=== PATIENT | female | born 1950 | race Caucasian/White ===

== ENCOUNTER 2022-09-12 08:00 | Outpatient (CLI) | payer MEDICARE ==
[2022-09-12 14:55] LABS: BASOPHILS # (AUTO) 0.1 10^3/uL (0.0-0.1); BASOPHILS % (AUTO) 0.9 %; EOSINOPHILS # (AUTO) 0.1 10^3/uL (0.0-0.7); EOSINOPHILS % (AUTO) 2.2 %; HCT - HEMATOCRIT 35.5 % (37.0-47.0); LYMPHOCYTES # (AUTO) 2.9 10^3/uL (1.5-3.5); LYMPHOCYTES % (AUTO) 45.4 %; MEAN CORPUSCULAR HEMOGLOBIN 27.6 pg (27.0-31.0); MEAN CORPUSCULAR VOLUME 89.2 fL (81.0-99.0); MEAN PLATELET VOLUME 11.7 fL (7.9-10.8); MONOCYTES # (AUTO) 0.3 10^3/uL (0.0-1.0); MONOCYTES % (AUTO) 5.1 %; NEUTROPHILS % (AUTO) 46.1 %; PLT - PLATELET COUNT 238 10^3/uL (130-450); RED BLOOD COUNT 3.98 10^6/uL (4.20-5.40); RED CELL DISTRIBUTION WIDTH 15.3 % (12.0-15.0); WHITE BLOOD COUNT 6.5 x10^3/uL (4.8-10.8)
[2022-09-12 15:41] LABS: ALBUMIN 3.6 g/dL (3.2-5.5); ALBUMIN/GLOBULIN RATIO 1.1 (1.0-2.2); BILIRUBIN,TOTAL 0.5 mg/dL (0.2-1.0); CALCIUM 9.5 mg/dL (8.5-10.3); CREATININE 0.7 mg/dL (0.4-1.0); POTASSIUM 4.6 mmol/L (3.5-5.0)
[2022-09-13 04:09] LABS: HBsAG SCREEN Negative (Negative); HCV AB <0.1 s/co ratio (0.0-0.9)
[2022-09-13 22:06] LABS: HIV SCREEN 4TH GENERATION Non Reactive (Non Reactive)
== END 2022-09-12 23:59 | disposition home or self-care (01) ==
LOC: LAB.S 08:00
PROVIDERS: ATTEND Registered Nurse
DX: Z77.21 Contact with and (suspected) exposure to potentially hazardous body fluids (principal)
CPT/HCPCS: 36415; 80053; 85025; 86803; 87340; G0475; 87389

== ENCOUNTER 2022-11-08 03:00 | Emergency (ER) | payer MEDICARE ==
--- OUTSIDE RECORDS SUMMARY | 2022-11-08 03:15 | EXTERNAL MEDICAL SUMMARY RPT | Continuity of Care Document ---
:1950 Author Organization [facility] Address [address] [place] [address] Phone Care Team Providers Name Role Phone Unavailable Unavailable Unavailable Monico Cota, Rodrigo Unavailable Unavailable Bayron Espino, Sloane Unavailable Unavailable Allison, Provider Unavailable Unavailable Nurse, [facility] Unavailable Unavailable Allergies No information. Encounters No information. Functional Status No information. Immunizations No information. Medications date description facility 2022-09-12 00:00 [email or web address] 2022-09-12 00:00 [email or web address] 2022-09-13 00:00 [email or web address] 2022-09-13 00:00 [email or web address] 2022-09-13 00:00 [email or web address] 2022-09-14 00:00 [email or web address] 2022-09-15 00:00 [email or web address] 2022-09-12 00:00 [email or web address] 2022-09-12 00:00 [email or web address] 2022-09-13 00:00 [email or web address] 2022-09-13 00:00 [email or web address] 2022-09-13 00:00 [email or web address] 2022-09-14 00:00 [email or web address] 2022-09-15 00:00 [email or web address] 2022-09-12 00:00 [email or web address] 2022-09-12 00:00 [email or web address] 2022-09-13 00:00 [email or web address] 2022-09-13 00:00 [email or web address] 2022-09-13 00:00 [email or web address] 2022-09-14 00:00 [email or web address] 2022-09-15 00:00 [email or web address] 2022-09-12 00:00 [email or web address] 2022-09-12 00:00 [email or web address] 2022-09-13 00:00 [email or web address] 2022-09-13 00:00 [email or web address] 2022-09-13 00:00 [email or web address] 2022-09-14 00:00 [email or web address] 2022-09-15 00:00 [email or web address] Problems date description facility 2022-09-12 00:00 H/O: risk factor [facility] 2022-09-12 00:00 H/O: risk factor [facility] 2022-09-12 00:00 H/O: risk factor [facility] 2022-09-12 00:00 H/O: risk factor [facility] 2022-09-12 00:00 Personal history of contact with [facility] (suspected) exposure to [facility] potentially hazardous body fluids 2022-09-12 00:00 Personal history of contact with [facility] and (suspected) exposure to [facility] potentially hazardous body fluids 2022-09-12 00:00 Personal history of contact with [facility] and (suspected) exposure to [facility] potentially hazardous body fluids 2022-09-12 00:00 Personal history of contact with [facility] & and (suspected) exposure to [facility] potentially hazardous body fluids 2022-09-12 00:00 Other specified personal risk [facility] factors, not elsewhere classified [facility] 2022-09-12 00:00 Other specified personal risk [facility] factors, not elsewhere classified [facility] 2022-09-12 00:00 Other specified personal risk [facility] factors, not elsewhere classified [facility] 2022-09-12 00:00 Other specified personal risk [facility] factors, not elsewhere classified [facility] Procedures date description facility 2022-09-12 00:00 Visit Code Hold [facility] 2022-09-12 00:00 Visit Code Hold [facility] 2022-09-12 00:00 Visit Code Hold [facility] 2022-09-12 00:00 Visit Code Hold [facility] Results/Labs test date author facility value unit interpret ation Result panel 1 (unknown) (no date) (unknown) [facility] (no value) (units [facility] Result panel 2 (unknown) (no date) (unknown) [facility] (no value) ([facility] Result panel 3 (unknown) (no date) (unknown) [facility] (no value) ([facility] Result panel 4 (unknown) (no date) (unknown) [facility] (no value) ([facility] Result panel 5 (unknown) (no date) (unknown) [facility] (no value) ([facility] Result panel 6 (unknown) (no date) (unknown) [facility] (no value) ([facility] Result panel 7 (unknown) (no date) (unknown) [facility] (no value) ([facility] Result panel 8 (unknown) (no date) (unknown) [facility] (no value) ([facility] Result panel 9 (unknown) (no date) (unknown) [facility] (no value) ([facility] Result panel 10 (unknown) (no date) (unknown) [facility] (no value) ([facility] Result panel 11 (unknown) (no date) (unknown) [facility] (no value) ([facility] Result panel 12 (unknown) (no date) (unknown) [facility] (no value) ([facility] Result panel 13 (unknown) (no date) (unknown) [facility] (no value) ([facility] Result panel 14 (unknown) (no date) (unknown) [facility] (no value) ([facility] Result panel 15 (unknown) (no date) (unknown) [facility] (no value) ([facility] Result panel 16 (unknown) (no date) (unknown) [facility] (no value) ([facility] Result panel 17 (unknown) (no date) (unknown) [facility] (no value) ([facility] Result panel 18 (unknown) (no date) (unknown) [facility] (no value) ([facility] Result panel 19 (unknown) (no date) (unknown) [facility] (no value) ([facility] Result panel 20 (unknown) (no date) (unknown) [facility] (no value) ([facility] Result panel 21 (unknown) (no date) (unknown) [facility] (no value) ([facility] Result panel 22 (unknown) (no date) (unknown) [facility] (no value) ([facility] Result panel 23 (unknown) (no date) (unknown) [facility] (no value) ([facility] Result panel 24 (unknown) (no date) (unknown) [facility] (no value) ([facility] Result panel 25 (unknown) (no date) (unknown) [facility] (no value) ([facility] Result panel 26 (unknown) (no date) (unknown) [facility] (no value) ([facility] Result panel 27 (unknown) (no date) (unknown) [facility] (no value) [facility] Result panel 28 (unknown) (no date) (unknown) [facility] (no value) ([facility] Result panel 29 (unknown) (no date) (unknown) [facility] (no value) [facility] Result panel 30 (unknown) (no date) (unknown) [facility] (no value) [facility] Result panel 31 (unknown) (no date) (unknown) [facility] (no value) ([facility] Result panel 32 (unknown) (no date) (unknown) [facility] (no value) ([facility] Result panel 33 (unknown) (no date) (unknown) [facility] (no value) ([facility] Result panel 34 (unknown) (no date) (unknown) [facility] (no value) ([facility] Result panel 35 (unknown) (no date) (unknown) [facility] (no value) ([facility] Result panel 36 (unknown) (no date) (unknown) [facility] (no value) ([facility] Result panel 37 (unknown) (no date) (unknown) [facility] (no value) ([facility] Result panel 38 (unknown) (no date) (unknown) [facility] (no value) [facility] Result panel 39 (unknown) (no date) (unknown) [facility] (no value) ([facility] Result panel 40 (unknown) (no date) (unknown) [facility] (no value) [facility] Result panel 41 (unknown) (no date) (unknown) [facility] (no value) ([facility] Result panel 42 (unknown) (no date) (unknown) [facility] (no value) ([facility] Result panel 43 (unknown) (no date) (unknown) [facility] (no value) ([facility] Result panel 44 (unknown) (no date) (unknown) [facility] (no value) ([facility] Result panel 45 (unknown) (no date) (unknown) [facility] (no value) ([facility] Result panel 46 (unknown) (no date) (unknown) [facility] (no value) ([facility] Result panel 47 (unknown) (no date) (unknown) [facility] (no value) ([facility] Result panel 48 (unknown) (no date) (unknown) [facility] (no value) ([facility] Result panel 49 (unknown) (no date) (unknown) [facility] (no value) [facility] Result panel 50 (unknown) (no date) (unknown) [facility] (no value) [facility] Result panel 51 (unknown) (no date) (unknown) [facility] (no value) ([facility] Result panel 52 (unknown) (no date) (unknown) [facility] (no value) [facility] Result panel 53 (unknown) (no date) (unknown) [facility] (no value) ([facility] Result panel 54 (unknown) (no date) (unknown) [facility] (no value) ([facility] Result panel 55 (unknown) (no date) (unknown) [facility] (no value) ([facility] Result panel 56 (unknown) (no date) (unknown) [facility] (no value) [facility] Result panel 57 (unknown) (no date) (unknown) [facility] (no value) [facility] Result panel 58 (unknown) (no date) (unknown) [facility] (no value) [facility] Result panel 59 (unknown) (no date) (unknown) [facility] (no value) [facility] Result panel 60 (unknown) (no date) (unknown) [facility] (no value) [facility] Result panel 61 (unknown) (no date) (unknown) [facility] (no value) [facility] Result panel 62 (unknown) (no date) (unknown) [facility] (no value) ([facility] Result panel 63 (unknown) (no date) (unknown) [facility] (no value) ([facility] Result panel 64 (unknown) (no date) (unknown) [facility] (no value) ([facility] Result panel 65 (unknown) (no date) (unknown) [facility] (no value) ([facility] Result panel 66 (unknown) (no date) (unknown) [facility] (no value) [facility] Result panel 67 (unknown) (no date) (unknown) [facility] (no value) ([facility] Result panel 68 (unknown) (no date) (unknown) [facility] (no value) ([facility] Result panel 69 (unknown) (no date) (unknown) [facility] (no value) [facility] Result panel 70 (unknown) (no date) (unknown) [facility] (no value) ([facility] Result panel 71 (unknown) (no date) (unknown) [facility] (no value) (units (unknown) [facility] Result panel 72 (unknown) (no date) (unknown) [facility] (no value) [facility] Result panel 73 (unknown) (no date) (unknown) [facility] (no value) ([facility] Result panel 74 (unknown) (no date) (unknown) [facility] (no value) ([facility] Result panel 75 (unknown) (no date) (unknown) [facility] (no value) ([facility] Result panel 76 (unknown) (no date) (unknown) [facility] (no value) ([facility] Result panel 77 (unknown) (no date) (unknown) [facility] (no value) ([facility] Result panel 78 (unknown) (no date) (unknown) [facility] (no value) ([facility] Result panel 79 (unknown) (no date) (unknown) [facility] (no value) ([facility] Result panel 80 (unknown) (no date) (unknown) [facility] (no value) ([facility] Result panel 81 (unknown) (no date) (unknown) [facility] (no value) ([facility] Result panel 82 (unknown) (no date) (unknown) [facility] (no value) ([facility] Result panel 83 (unknown) (no date) (unknown) [facility] (no value) ([facility] Result panel 84 (unknown) (no date) (unknown) [facility] (no value) ([facility] Result panel 85 (unknown) (no date) (unknown) [facility] (no value) ([facility] Result panel 86 (unknown) (no date) (unknown) [facility] (no value) ([facility] Result panel 87 (unknown) (no date) (unknown) [facility] (no value) ([facility] Result panel 88 (unknown) (no date) (unknown) [facility] (no value) ([facility] Result panel 89 (unknown) (no date) (unknown) [facility] (no value) ([facility] ([facility] Result panel 90 (unknown) (no date) (unknown) [facility] (no value) ([facility] ([facility] Result panel 91 (unknown) (no date) (unknown) [facility] (no value) (units ([facility] Result panel 92 (unknown) (no date) (unknown) [facility] (no value) (units ([facility] Result panel 93 (unknown) (no date) (unknown) [facility] (no value) (units ([facility] Result panel 94 (unknown) (no date) (unknown) [facility] (no value) (units ([facility] Result panel 95 (unknown) (no date) (unknown) [facility] (no value) (units ([facility] Result panel 96 (unknown) (no date) (unknown) [facility] (no value) (units ([facility] Result panel 97 (unknown) (no date) (unknown) [facility] (no value) (units ([facility] Result panel 98 (unknown) (no date) (unknown) [facility] (no value) (units ([facility] Result panel 99 (unknown) (no date) (unknown) [facility] (no value) (units [facility] Result panel 100 (unknown) (no date) (unknown) [facility] (no value) ([facility] Result panel 101 (unknown) (no date) (unknown) [facility] (no value) (units [facility] Result panel 102 (unknown) (no date) (unknown) [facility] (no value) ([facility] Result panel 103 (unknown) (no date) (unknown) [facility] (no value) (units [facility] Result panel 104 (unknown) (no date) (unknown) [facility] (no value) (units [facility] Result panel 105 (unknown) (no date) (unknown) [facility] (no value) (units [facility] Result panel 106 (unknown) (no date) (unknown) [facility] (no value) (units [facility] Result panel 107 (unknown) (no date) (unknown) [facility] (no value) (units ([facility] Result panel 108 (unknown) (no date) (unknown) [facility] (no value) (units [facility] Result panel 109 (unknown) (no date) (unknown) [facility] (no value) ([facility] Result panel 110 (unknown) (no date) (unknown) [facility] (no value) (units [facility] Result panel 111 (unknown) (no date) (unknown) [facility] (no value) (units [facility] Result panel 112 (unknown) (no date) (unknown) [facility] (no value) (units ([facility] Result panel 113 (unknown) (no date) (unknown) [facility] (no value) (units ([facility] Result panel 114 (unknown) (no date) (unknown) [facility] (no value) (units ([facility] Result panel 115 (unknown) (no date) (unknown) [facility] (no value) ([facility] Result panel 116 (unknown) (no date) (unknown) [facility] (no value) ([facility] Result panel 117 (unknown) (no date) (unknown) [facility] (no value) (units [facility] Result panel 118 (unknown) (no date) (unknown) [facility] (no value) ([facility] Result panel 119 (unknown) (no date) (unknown) [facility] (no value) (units [facility] Result panel 120 (unknown) (no date) (unknown) [facility] (no value) (units [facility] Result panel 121 (unknown) (no date) (unknown) [facility] (no value) (units ([facility] Result panel 122 (unknown) (no date) (unknown) [facility] (no value) ([facility] Result panel 123 (unknown) (no date) (unknown) [facility] (no value) (units [facility] Result panel 124 (unknown) (no date) (unknown) [facility] (no value) ([facility] Result panel 125 (unknown) (no date) (unknown) [facility] (no value) ([facility] Result panel 126 (unknown) (no date) (unknown) [facility] (no value) (units ([facility] Result panel 127 (unknown) (no date) (unknown) [facility] (no value) ([facility] ([facility] Result panel 128 (unknown) (no date) (unknown) [facility] (no value) (units ([facility] Result panel 129 (unknown) (no date) (unknown) [facility] (no value) ([facility] Result panel 130 (unknown) (no date) (unknown) [facility] (no value) ([facility] Result panel 131 (unknown) (no date) (unknown) [facility] (no value) ([facility] Result panel 132 (unknown) (no date) (unknown) [facility] (no value) ([facility] Result panel 133 (unknown) (no date) (unknown) [facility] (no value) ([facility] Result panel 134 (unknown) (no date) (unknown) [facility] (no value[facility] Result panel 135 (unknown) (no date) (unknown) [facility] (no value) [facility] Result panel 136 (unknown) (no date) (unknown) [facility] (no value) [facility] Result panel 137 (unknown) (no date) (unknown) [facility] (no value) [facility] Result panel 138 (unknown) (no date) (unknown) [facility] (no value) [facility] Result panel 139 (unknown) (no date) (unknown) [facility] (no value) [facility]units [facility] Result panel 140 (unknown) (no date) (unknown) [facility] (no value) [facility] Result panel 141 (unknown) (no date) (unknown) [facility] (no value) [facility] Result panel 142 (unknown) (no date) (unknown) [facility] (no value) [facility] Result panel 143 (unknown) (no date) (unknown) [facility] (no value) [facility] Result panel 144 (unknown) (no date) (unknown) [facility] (no value) [facility] Result panel 145 (unknown) (no date) (unknown) [facility] (no value) [facility] Result panel 146 (unknown) (no date) (unknown) [facility] (no value) [facility]units [facility] Result panel 147 (unknown) (no date) (unknown) [facility] (no value) [facility]units [facility] Result panel 148 (unknown) (no date) (unknown) [facility] (no value) [facility] Result panel 149 (unknown) (no date) (unknown) [facility] (no value) [facility]units [facility] Result panel 150 (unknown) (no date) (unknown) [facility] (no value) [facility] Result panel 151 (unknown) (no date) (unknown) [facility] (no value) [facility] Result panel 152 (unknown) (no date) (unknown) [facility] (no value) [facility] Result panel 153 (unknown) (no date) (unknown) [facility] (no value) [facility] Result panel 154 (unknown) (no date) (unknown) [facility] (no value) [facility] Result panel 155 (unknown) (no date) (unknown) [facility] (no value) [facility] Result panel 156 (unknown) (no date) (unknown) [facility] (no value) [facility] Result panel 157 (unknown) (no date) (unknown) [facility] (no value) [facility] Result panel 158 (unknown) (no date) (unknown) [facility] (no value) [facility] Result panel 159 (unknown) (no date) (unknown) [facility] (no value) [facility] Result panel 160 (unknown) (no date) (unknown) [facility] (no value) [facility] Result panel 161 (unknown) (no date) (unknown) [facility] (no value) [facility] Result panel 162 (unknown) (no date) (unknown) [facility] (no value) [facility] Result panel 163 (unknown) (no date) (unknown) [facility] (no value) [facility] Result panel 164 (unknown) (no date) (unknown) [facility] (no value) [facility] Result panel 165 (unknown) (no date) (unknown) [facility] (no value) [facility] Result panel 166 (unknown) (no date) (unknown) [facility] (no value) [facility] Result panel 167 (unknown) (no date) (unknown) Walk-[facility] (no value) [facility] Result panel 168 (unknown) (no date) (unknown) [facility] (no value) [facility]units [facility] Result panel 169 (unknown) (no date) (unknown) [facility] (no value) [facility] Result panel 170 (unknown) (no date) (unknown) Walk-[facility] (no value) [facility] Result panel 171 (unknown) (no date) (unknown) [facility] (no value) [facility] Result panel 172 (unknown) (no date) (unknown) [facility] (no value) [facility] Result panel 173 (unknown) (no date) (unknown) [facility] (no value) [facility] Result panel 174 (unknown) (no date) (unknown) [facility] (no value) [facility] Result panel 175 (unknown) (no date) (unknown) [facility] (no value) [facility] Result panel 176 (unknown) (no date) (unknown) [facility] (no value) [facility] Result panel 177 (unknown) (no date) (unknown) [facility] (no value) [facility] Result panel 178 (unknown) (no date) (unknown) [facility] (no value) [facility] Result panel 179 (unknown) (no date) (unknown) [facility] (no value) [facility] Result panel 180 (unknown) (no date) (unknown) [facility] (no value) [facility] Result panel 181 (unknown) (no date) (unknown) [facility] (no value) [facility] Result panel 182 (unknown) (no date) (unknown) [facility] (no value) [facility]units [facility] Result panel 183 (unknown) (no date) (unknown) [facility] (no value) [facility] Result panel 184 (unknown) (no date) (unknown) [facility] (no value) [facility] Result panel 185 (unknown) (no date) (unknown) [facility] (no value) [facility] Result panel 186 (unknown) (no date) (unknown) [facility] (no value) [facility] Result panel 187 (unknown) (no date) (unknown) [facility] (no value) [facility] Result panel 188 (unknown) (no date) (unknown) [facility] (no value) [facility] Result panel 189 (unknown) (no date) (unknown) [facility] (no value) [facility] Result panel 190 (unknown) (no date) (unknown) [facility] (no value) [facility] Result panel 191 (unknown) (no date) (unknown) [facility] (no value) [facility]units [facility] Result panel 192 (unknown) (no date) (unknown) [facility] (no value) [facility] Result panel 193 (unknown) (no date) (unknown) [facility] (no value) [facility] Result panel 194 (unknown) (no date) (unknown) [facility] (no value) [facility] Result panel 195 (unknown) (no date) (unknown) [facility] (no value) [facility] Result panel 196 (unknown) (no date) (unknown) [facility] (no value) [facility]units [facility] Result panel 197 (unknown) (no date) (unknown) [facility] (no value) [facility] Result panel 198 (unknown) (no date) (unknown) [facility] (no value) [facility]units [facility] Result panel 199 (unknown) (no date) (unknown) [facility] (no value) [facility] Result panel 200 (unknown) (no date) (unknown) [facility] (no value) [facility] Result panel 201 (unknown) (no date) (unknown) [facility] (no value) [facility]units [facility] Result panel 202 (unknown) (no date) (unknown) [facility] (no value) [facility] Result panel 203 (unknown) (no date) (unknown) [facility] (no value) [facility] Result panel 204 (unknown) (no date) (unknown) [facility] (no value) [facility]units [facility] Result panel 205 (unknown) (no date) (unknown) [facility] (no value) [facility]units [facility] Result panel 206 (unknown) (no date) (unknown) [facility] (no value) [facility]units [facility] Result panel 207 (unknown) (no date) (unknown) [facility] (no value) [facility]units [facility] Result panel 208 (unknown) (no date) (unknown) [facility] (no value) [facility] Result panel 209 (unknown) (no date) (unknown) [facility] (no value) [facility] Result panel 210 (unknown) (no date) (unknown) [facility] (no value) [facility]units [facility] Result panel 211 (unknown) (no date) (unknown) [facility] (no value) [facility] Result panel 212 (unknown) (no date) (unknown) [facility] (no value) [facility] Result panel 213 (unknown) (no date) (unknown) [facility] (no value) [facility] Result panel 214 (unknown) (no date) (unknown) [facility] (no value) [facility] Result panel 215 (unknown) (no date) (unknown) [facility] (no value) [facility] Result panel 216 (unknown) (no date) (unknown) [facility] (no value) [facility] Result panel 217 (unknown) (no date) (unknown) [facility] (no value) [facility] Result panel 218 (unknown) (no date) (unknown) [facility] (no value) [facility] Result panel 219 (unknown) (no date) (unknown) [facility] (no value) [facility] Result panel 220 (unknown) (no date) (unknown) [facility] (no value) [facility] Result panel 221 (unknown) (no date) (unknown) [facility] (no value) [facility]units [facility] Result panel 222 (unknown) (no date) (unknown) [facility] (no value) [facility] Result panel 223 (unknown) (no date) (unknown) [facility] (no value) [facility] Result panel 224 (unknown) (no date) (unknown) [facility] (no value) [facility] Result panel 225 (unknown) (no date) (unknown) [facility] (no value) [facility] Result panel 226 (unknown) (no date) (unknown) [facility] (no value) [facility] Result panel 227 (unknown) (no date) (unknown) [facility] (no value) [facility] Result panel 228 (unknown) (no date) (unknown) [facility] (no value) [facility] Result panel 229 (unknown) (no date) (unknown) [facility] (no value) [facility] Result panel 230 (unknown) (no date) (unknown) [facility] (no value) [facility] Result panel 231 (unknown) (no date) (unknown) [facility] (no value) [facility] Result panel 232 (unknown) (no date) (unknown) [facility] (no value) [facility] Result panel 233 (unknown) (no date) (unknown) [facility] (no value) [facility] Result panel 234 (unknown) (no date) (unknown) [facility] (no value) [facility] Result panel 235 (unknown) (no date) (unknown) [facility] (no value) [facility] Result panel 236 (unknown) (no date) (unknown) [facility] (no value) [facility] Result panel 237 (unknown) (no date) (unknown) [facility] (no value) [facility] Result panel 238 (unknown) (no date) (unknown) [facility] (no value) [facility]units [facility] Result panel 239 (unknown) (no date) (unknown) [facility] (no value) [facility] Result panel 240 (unknown) (no date) (unknown) [facility] (no value) [facility] Result panel 241 (unknown) (no date) (unknown) [facility] (no value) [facility] Result panel 242 (unknown) (no date) (unknown) [facility] (no value) [facility] Result panel 243 (unknown) (no date) (unknown) [facility] (no value) [facility] Result panel 244 (unknown) (no date) (unknown) [facility] (no value) [facility] Result panel 245 (unknown) (no date) (unknown) [facility] (no value) [facility] Result panel 246 (unknown) (no date) (unknown) [facility] (no value) [facility] Result panel 247 (unknown) (no date) (unknown) [facility] (no value) [facility] Result panel 248 (unknown) (no date) (unknown) [facility] (no value) [facility] Result panel 249 (unknown) (no date) (unknown) [facility] (no value) [facility]units [facility] Result panel 250 (unknown) (no date) (unknown) [facility] (no value) [facility] Result panel 251 (unknown) (no date) (unknown) [facility] (no value) [facility] Result panel 252 (unknown) (no date) (unknown) [facility] (no value) [facility] Result panel 253 (unknown) (no date) (unknown) [facility] (no value) [facility] Result panel 254 (unknown) (no date) (unknown) [facility] (no value) [facility] Result panel 255 (unknown) (no date) (unknown) [facility] (no value) [facility] Result panel 256 (unknown) (no date) (unknown) [facility] (no value) [facility] Result panel 257 (unknown) (no date) (unknown) [facility] (no value) [facility] Result panel 258 (unknown) (no date) (unknown) [facility] (no value) [facility] Social History date description facility 2022-09-12 00:00 Never smoker Walk[facility] [place] 2022-09-12 00:00 Never smoker Walk[facility]In [facility] [place] 2022-09-12 00:00 Never smoker Walk[facility] [place] 2022-09-12 00:00 Never smoker Walk[facility] [place] Vital Signs date measurement value units 2022-09-12 00:00 BMI 30.15 kg/m2 2022-09-12 00:00 BP_diastolic 63 mmHg 2022-09-12 00:00 BP_systolic 105 mmHg 2022-09-12 00:00 heart_rate 54 /min 2022-09-12 00:00 height_metric 162.56 cm 2022-09-12 00:00 height_standard 64 in 2022-09-12 00:00 respiration_rate 16 /min 2022-09-12 00:00 temperature_metric 36.44 C 2022-09-12 00:00 temperature_standard 97.6 F 2022-09-12 00:00 weight_metric 79.38 kg 2022-09-12 00:00 weight_standard 175 lb
--- NOTE | 2022-11-08 03:37 | ED Physician Documentation ---
PD HPI ABD PAIN - Stated complaint Stated Complaint: LT SIDE ABD/BACK PX, NAUSEA - Chief complaint Chief Complaint: Abd Pain - History obtained from History obtained from: Patient - History of Present Illness Timing - onset: How many hours ago (approximately 2-3 hours [employer]) Timing - duration: Hours Timing - details: Abrupt onset, Waxing and waning Pain level now: 9 Quality: Pain Associated symptoms: Nausea, Vomiting - Additional information Additional information: HPI from patient. Patient complains of left flank pain which woke her from sleep approximately 2 to 3 hours prior to arrival. The pain is associated with nausea and vomiting, mostly when the pain is at its most intense. She has never had this type of pain before. She felt well during the day. There are no exacerbating or ameliorating factors. She denies any dysuria, hematuria, urinary frequency. 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 : None HEENT: None Psych: None Musculoskeletal: None Derm: None - Present Medications Home Medications: Ambulatory Orders Medication Instructions Recorded Confirmed Atorvastatin [Lipitor] 20 mg PO DAILY 11/08/22 11/08/22 Ondansetron Odt [Zofran Odt] 4 mg TL Q6H PRN #10 tablet 11/08/22 Tamsulosin [Flomax] 0.4 mg PO DAILY #14 cap 11/08/22 oxyCODONE [Roxicodone] 5 - 10 mg PO Q6H PRN #20 tablet 11/08/22 - Allergies Allergies/Adverse Reactions: Allergies Allergy/AdvReac Type Severity Reaction Status Date / Time No Known Drug Allergies Allergy Verified 11/08/22 03:12 - Social History Does the pt smoke?: No Smoking Status: Never smoker Does the pt drink ETOH?: Yes Does the pt have substance abuse?: No - Immunizations Immunizations are current?: Yes - POLST Patient has POLST: No PD ED PE NORMAL - Vitals Vital signs reviewed: Yes - General General: Alert and oriented X 3, Well developed/nourished, Other (appears to be in moderate painful distress) - Cardiac Cardiac: RRR, No murmur - Respiratory Respiratory: No respiratory distress, Clear bilaterally - Abdomen Abdomen: Normal bowel sounds, Soft, Non tender, Non distended - Back Back: No CVA TTP - Derm Derm: Normal color, Warm and dry, No rash Results - Vitals Vitals: Oxygen O2 Source Room air - Labs Labs: Laboratory Tests 11/08/22 11/08/22 11/08/22 03:37 03:37 05:34 WBC 11.9 H RBC 4.57 Hgb 12.3 Hct 40.1 MCV 87.7 MCH 26.9 L MCHC 30.7 L RDW 14.6 Plt Count 260 MPV 11.7 H Neut # (Auto) 8.7 H Lymph # (Auto) 2.5 [place] # (Auto) 0.5 Eos # (Auto) 0.1 Baso # (Auto) 0.1 Absolute Nucleated RBC 0.00 Nucleated RBC % 0.0 Sodium 140 Potassium 3.9 Chloride 104 Carbon Dioxide 24 Anion Gap 12.0 BUN 25 H Creatinine 0.9 Estimated GFR (MDRD) 62 L Glucose 153 H Calcium 9.7 Total Bilirubin 0.4 AST 24 ALT 26 Alkaline Phosphatase 89 Total Protein 7.8 Albumin 4.2 Globulin 3.6 Albumin/Globulin Ratio 1.2 Lipase 51 Urine Color YELLOW Urine Clarity CLEAR Urine pH 5.0 Ur Specific [place] >=1.030 H Urine Protein TRACE Urine Glucose (UA) NEGATIVE Urine Ketones NEGATIVE Urine Occult Blood LARGE H Urine Nitrite NEGATIVE Urine Bilirubin NEGATIVE Urine Urobilinogen 0.2 (NORMAL) Ur Leukocyte Esterase TRACE H Urine RBC 11-25 H Urine WBC 0-3 Ur Squamous Epith Cells MOD Squamous H Urine Bacteria Few Ur Microscopic Review INDICATED Urine Culture Comments NOT INDICATED - Rads (name of study) CT A/P Radiology: Prelim report reviewed, EMP read indepedently, See rad report PD Medical Decision Making - ED course Complexity details: reviewed results, re-evaluated patient, considered differential, d/w patient ED course: Tests ordered and results reviewed by me: CBC, ER abdominal panel, urinalysis, CT abdomen and pelvis without contrast. She is given 1 mg Dilaudid intravenously as well as 4 mg Zofran IV. On reev aluation, she is in NAD and reports significant improvement in symptoms with these medications. CT A/P shows 3mm proximal left ureteral calculus with mild left hydronephrosis and proximal hydroureter. UA with hematuria as expected with active renal colic. Results reviewed with patient. She is given 0.4mg tamsulosin PO. She is also given a second dose of 1mg IV dilaudid towards the end of her stay for gradually increasing /retuning flank pain, as well as 4mg IV zofran for returning nausea; these medications again helped significantly, and she reports feeling the pain has essentially resolved prior to d/c. She is given take-home packs of percocet and ondansetron, and I then e-prescribed roxicodone, tamsulosin, and ondansetron to her pharmacy of choice. Return precautions reviewed. Advised to seek follow up with primary care provider I am prescribing a short course of short-acting opioid pain medication for this patient. 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 I have discussed that the opioids are for short term therapy only, and will not be refilled from the ED. Departure - Departure Disposition: 01 Home, Self Care Clinical Impression: Renal colic Condition: Good Instructions: ED Stone Renal W Colic Prescriptions: Tamsulosin [Flomax] 0.4 mg PO DAILY #14 cap oxyCODONE [Roxicodone] 5 - 10 mg PO Q6H PRN #20 tablet PRN Reason: Pain Ondansetron Odt [Zofran Odt] 4 mg TL Q6H PRN #10 tablet PRN Reason: Nausea / Vomiting Comments: There were no concerning findings on the blood tests performed tonight. The urine specimen had a large amount of blood, but this is typical with a kidney stone. The CT scan does show a small left sided kidney stone that is blocking the ureter (the passageway from the kidney to the bladder). The kidney stone is 3 mm in diameter; again, this is a relatively small stone and therefore will likely pass on its own (should not need a procedure to have it removed). You have been provided a strainer, and you should strain your urine until the stone is captured in the strainer. You should save the kidney stone in case your doctor wants to send it to the lab for analysis. You should follow-up with your primary care provider for reevaluation; they might order other tests and/or refer you to a urologist. You are being provided with prescriptions for Percocet (narcotic pain medication), ondansetron (antinausea medication), and tamsulosin (medication that can increase the likelihood and decrease the time to passage of the kidney stone) I am prescribing a short course of narcotic pain medication for you. These are potentially dangerous and addictive medications that should be used carefully. These medications may constipate you. Take an [id number]-[id number] stool softener (docusate) twice daily with plenty of water while taking these medications. If you go 24 hours without a bowel movement, take [id number] miralax, per package instructions. Do not drink or drive while taking these medications. If you received narcotic or sedating medications while in the emergency department, do not drive for 24 hours. Store this medication in a safe, secure place and out of reach of children. It is a violation of federal law to give or sell this medication to another person or to use in a manner other than prescribed. The ED will not refill narcotic prescriptions, including prescriptions lost or stolen. To dispose of unwanted medications: 1. [facility] at [address] [facility] in [place] has a medication drop box. They accept prescription medications (in pill form) Monday through Monday 9:00 a.m. to 5:00 p.m. 2. The [facility] [employer] [facility] accepts prescription medications (in pill form only) for disposal year round. Call for more information. 3. Contact the [facility] for the next [facility] sponsored prescription drug collection event. , [phone], or [phone]; Discharge Date/Time: 11/08/22 08:35
[2022-11-08] MEDS ORDERED: ONDANSETRON 4 MG/2 ML VIAL IVP STA ×2 (03:49→07:56)
[2022-11-08] MEDS ORDERED: HYDROmorphone 1 MG/ML CARPUJECT IVP STA ×2 (03:49→05:01)
[2022-11-08 03:59] LABS: BASOPHILS # (AUTO) 0.1 10^3/uL (0.0-0.1); BASOPHILS % (AUTO) 0.7 %; EOSINOPHILS # (AUTO) 0.1 10^3/uL (0.0-0.7); EOSINOPHILS % (AUTO) 0.9 %; HCT - HEMATOCRIT 40.1 % (37.0-47.0); HGB - HEMOGLOBIN 12.3 g/dL (12.0-16.0); LYMPHOCYTES # (AUTO) 2.5 10^3/uL (1.5-3.5); LYMPHOCYTES % (AUTO) 21.1 %; MEAN CORPUSCULAR HEMOGLOBIN 26.9 pg (27.0-31.0); MEAN CORPUSCULAR HGB CONC 30.7 g/dL (32.0-36.0); MEAN CORPUSCULAR VOLUME 87.7 fL (81.0-99.0); MEAN PLATELET VOLUME 11.7 fL (7.9-10.8); MONOCYTES # (AUTO) 0.5 10^3/uL (0.0-1.0); MONOCYTES % (AUTO) 3.9 %; NEUTROPHILS # (AUTO) 8.7 10^3/uL (1.5-6.6); NEUTROPHILS % (AUTO) 73.1 %; PLT - PLATELET COUNT 260 10^3/uL (130-450); RED BLOOD COUNT 4.57 10^6/uL (4.20-5.40); RED CELL DISTRIBUTION WIDTH 14.6 % (12.0-15.0); WHITE BLOOD COUNT 11.9 x10^3/uL (4.8-10.8)
[2022-11-08 04:09] LABS: ALBUMIN 4.2 g/dL (3.2-5.5); ALBUMIN/GLOBULIN RATIO 1.2 (1.0-2.2); BILIRUBIN,TOTAL 0.4 mg/dL (0.2-1.0); CALCIUM 9.7 mg/dL (8.5-10.3); CREATININE 0.9 mg/dL (0.4-1.0); POTASSIUM 3.9 mmol/L (3.5-5.0); TOTAL PROTEIN 7.8 g/dL (6.7-8.2)
[2022-11-08] MEDS ORDERED: KETOROLAC 15 MG/ML VIAL IVP STA (05:01)
[2022-11-08 05:40] LABS: BILIRUBIN,URINE NEGATIVE (NEGATIVE); GLUCOSE, URINE (UA) NEGATIVE (NEGATIVE); KETONES,URINE (UA) NEGATIVE (NEGATIVE); LEUKOCYTE ESTERASE, URINE TRACE (NEGATIVE); NITRITE,URINE NEGATIVE (NEGATIVE); OCCULT BLOOD,URINE LARGE (NEGATIVE); PROTEIN,URINE TRACE mg/dL (NEGATIVE); UROBILINOGEN,URINE 0.2 (NORMAL) E.U./dL (NORMAL)
[2022-11-08 05:48] LABS: BACTERIA,URINE Few /HPF (None Seen); CLARITY,URINE CLEAR (CLEAR); SQUAMOUS EPITHELIAL CELL,UR MOD Squamous (<= Few); WBC,URINE 0-3 /HPF (0-5)
[2022-11-08] MEDS ORDERED: ONDANSETRON ODT 4 MG Prepack 2 TL PRN (07:56)
[2022-11-08] MEDS ORDERED: oxyCODONE/ACET 5/325 Prepack 4 PO STA (07:57)
[2022-11-08] MEDS ORDERED: TAMSULOSIN 0.4 MG CAPSULE PO STA (08:10)
[2022-11-08 08:34] VITALS: BP 110/65
--- NOTE | 2022-11-08 09:09 | CT Report ---
PROCEDURE: ABDOMEN/PELVIS WO INDICATIONS: left flank pain TECHNIQUE: Noncontrast 5 mm thick sections acquired from the diaphragms to the symphysis. 5 mm coronal and sagi ttal reformats were then performed. For radiation dose reduction, the following was used: automated exposure control, adjustment of mA and/or kV according to patient size. COMPARISON: None. FINDINGS: Image quality: Excellent. ABDOMEN: Lung bases: Lung bases are clear. Heart size is normal. Solid organs: Liver and spleen are normal in size. Gallbladder is unremarkable Pancreas is normal in contours. No adrenal nodules. There is left perinephric stranding with minimal to mild hydronephr osis. 3 mm proximal left ureteral calculus is present with minimal proximal hydroureter. Peritoneum and bowel: Unenhanced bowel loops demonstrate normal wall thickness and caliber. No free fluid or air. Nodes and vessels: No retroperitoneal or mesenteric adenopathy by size criteria. Aorta and inferior vena cava are normal in caliber. Miscellaneous: No ventral hernias. Moderate hiatal hernia. PELVIS: Genitourinary: Bladder wall thickness is normal. Miscellaneous: No inguinal hernias or adenopathy. Bones: No suspicious bony lesions. No vertebral body compression fractures. IMPRESSION: Minimal to mild left hydronephrosis and proximal hydroureter secondary to 3 mm proximal ureteral calc ulus. The above findings are concordant with preliminary report. Reviewed by: Adelita Gonzales MD on 11/08/2022 9:07 AM [facility] Approved by: Adelita Gonzales MD on 11/08/2022 9:07 AM PST Station ID: [id number]
== END 2022-11-08 08:35 | disposition home or self-care (01) ==
LOC: ED 03:00
DX: N13.2 Hydronephrosis with renal and ureteral calculous obstruction (principal)
CPT/HCPCS: 36415; 74176; 80053; 81001; 83690; 85025; 96374; 96375; 96376; 99283; 99284; A9270; J1170; 81003; 87086

== ENCOUNTER 2024-04-15 14:47 | Emergency (ER) | payer MEDICARE ==
[2024-04-15 14:58] VITALS: BP 128/66; O2SAT 98
[2024-04-15 15:13] LABS: BASOPHILS # (AUTO) 0.1 10^3/uL (0.0-0.1); BASOPHILS % (AUTO) 0.5 %; EOSINOPHILS # (AUTO) 0.2 10^3/uL (0.0-0.7); EOSINOPHILS % (AUTO) 1.8 %; HCT - HEMATOCRIT 36.6 % (37.0-47.0); HGB - HEMOGLOBIN 11.5 g/dL (12.0-16.0); LYMPHOCYTES # (AUTO) 2.5 10^3/uL (1.5-3.5); LYMPHOCYTES % (AUTO) 27.1 %; MEAN CORPUSCULAR HEMOGLOBIN 28.5 pg (27.0-31.0); MEAN CORPUSCULAR HGB CONC 31.4 g/dL (32.0-36.0); MEAN CORPUSCULAR VOLUME 90.6 fL (81.0-99.0); MEAN PLATELET VOLUME 11.1 fL (7.9-10.8); MONOCYTES # (AUTO) 0.6 10^3/uL (0.0-1.0); MONOCYTES % (AUTO) 6.2 %; NEUTROPHILS % (AUTO) 64.2 %; PLT - PLATELET COUNT 252 10^3/uL (130-450); RED BLOOD COUNT 4.04 10^6/uL (4.20-5.40); RED CELL DISTRIBUTION WIDTH 15.6 % (12.0-15.0); WHITE BLOOD COUNT 9.4 x10^3/uL (4.8-10.8)
[2024-04-15 15:16] LABS: BILIRUBIN,URINE NEGATIVE (NEGATIVE); GLUCOSE, URINE (UA) NEGATIVE (NEGATIVE); KETONES,URINE (UA) NEGATIVE (NEGATIVE); LEUKOCYTE ESTERASE, URINE SMALL (NEGATIVE); NITRITE,URINE NEGATIVE (NEGATIVE); OCCULT BLOOD,URINE NEGATIVE (NEGATIVE); PH,URINE 5.5 PH (5.0-7.5); PROTEIN,URINE NEGATIVE (NEGATIVE); UROBILINOGEN,URINE 0.2 (NORMAL) E.U./dL (NORMAL)
[2024-04-15 15:26] LABS: CLARITY,URINE HAZY (CLEAR)
[2024-04-15 15:30] LABS: ALBUMIN 4.3 g/dL (3.2-5.5); ALBUMIN/GLOBULIN RATIO 1.9 (1.0-2.2); BILIRUBIN,TOTAL 0.3 mg/dL (0.2-1.0); CALCIUM 9.8 mg/dL (8.5-10.3); CREATININE 0.8 mg/dL (0.6-1.3); POTASSIUM 3.7 mmol/L (3.5-4.5); TOTAL PROTEIN 6.6 g/dL (6.4-8.9)
[2024-04-15 15:40] LABS: BACTERIA,URINE Moderate /HPF (None Seen); RBC,URINE 0-5 /HPF (0-5); SQUAMOUS EPITHELIAL CELL,UR MOD Squamous (<= Few)
== END 2024-04-15 18:58 | disposition left against medical advice (07) ==
LOC: ED 14:47
DX: Z53.21 Procedure and treatment not carried out due to patient leaving prior to being seen by health care provider (principal)
CPT/HCPCS: 36415; 80053; 81001; 81003; 83690; 85025; 87086